=== PATIENT | female | born 1945 | race Asian ===

== ENCOUNTER 2022-02-02 20:30 | Inpatient (IN) | payer BC, MEDICARE ==
[~2022-02-02] VITALS: Ht 154.9 cm; Wt 53.7 kg
--- NOTE | 2022-02-02 20:51 | NUR ---
IV LINE RAC20G
--- NOTE | 2022-02-02 20:51 | NUR ---
BLOOD COLLECTED AND SENT TO LAB
--- NOTE | 2022-02-02 21:25 | NUR ---
COVID SWAB COLLECTED AND SENT TO LAB.
[2022-02-02 21:28] LABS: BASOPHILS % (AUTO) 0.1 % (0.0-2.0); EOSINOPHILS % (AUTO) 0.9 % (0.0-6.0); HEMATOCRIT 39 % (33-45); HEMOGLOBIN 12.4 g/dL (11.5-14.8); LYMPHOCYTES # (AUTO) 0.8 K/uL (0.8-4.8); LYMPHOCYTES % (AUTO) 6.6 % (20.0-44.0); MEAN CORPUSCULAR HGB CONC 32 g/dl (31.0-36.0); MEAN CORPUSCULAR VOLUME 90 fL (82-100); MONOCYTES # (AUTO) 0.7 K/uL (0.1-1.30); MONOCYTES % (AUTO) 5.4 % (2.0-12.0); NEUTROPHILS # (AUTO) 10.6 K/uL (1.8-8.9); PLATELET COUNT (AUTO) 178 K/uL (150-450); RED BLOOD CELL COUNT(AUTO) 4.32 MIL/uL (4.0-5.2); WHITE BLOOD COUNT (AUTO) 12.2 K/uL (4.3-11.0)
[2022-02-02 21:37] LABS: CALCIUM, SERUM 8.7 mg/dL (8.5-10.1); CREATININE 0.9 mg/dL (0.6-1.3); POTASSIUM 3.6 mmol/L (3.5-5.1)
--- NOTE | 2022-02-02 21:37 | NUR ---
XRAY AT BEDSIDE
[2022-02-03] MEDS ORDERED: MAGNESIUM HYDROXIDE 30 ML UDC PO PRN (00:30)
[2022-02-03] MEDS ORDERED: Z GUARD REMEDY 4 OZ OINT TP PRN (00:30)
[2022-02-03] MEDS ORDERED: ONDANSETRON HCL/PF 4 MG/2 ML VIAL IVP PRN (00:30)
[2022-02-03] MEDS ORDERED: ZOLPIDEM TARTRATE 5 MG TABLET PO PRN (00:30)
[2022-02-03] MEDS ORDERED: MAG HYDROX/AL HYDROX/SIMETH 30 ML UDC PO PRN (00:30)
--- NOTE | 2022-02-03 03:50 | NUR ---
PT ADMITS TO PAIN 8/10 ON PAIN SCALE. WILL PROVIDED PRN PAIN MEDS PER MD ORDER
[2022-02-03] MEDS ORDERED: MORPHINE SULFATE INJ 2 MG/ML DISP.SYRIN ONE ×4 (03:51→18:12)
[2022-02-03] MEDS: MORPHINE SULFATE INJ 2 MG/ML DISP.SYRIN IV PRN ×4 (04:01→23:45)
--- NOTE | 2022-02-03 04:21 | NUR ---
MRSA SWAB SENT TO LAB
[2022-02-03] MEDS: CEFAZOLIN 1 GM in IV D5W 50 ML IV SCH ×3 (05:00→21:00)
[2022-02-03] MEDS ORDERED: DENO60DI SQ (09:25)
[2022-02-03] MEDS ORDERED: PREG-59 PO (09:25)
[2022-02-03] MEDS ORDERED: MELO7.5T12 GT (09:25)
--- NOTE | 2022-02-03 10:52 | NUR ---
Ortho PA @ bedside. Discussed plan of care with Pt and Family (daughter @ bedside). Plan for Ortho Surgery 02/04/[address] Salinas.
--- NOTE | 2022-02-03 11:55 | NUR ---
SHELIA ([facility]) [phone], NEEDS TO SPEAK W/ PT'S RN SHIFT MGR.
--- NOTE | 2022-02-03 12:07 | NUR ---
Left Thumb Splint in place. Pt to CT
--- NOTE | 2022-02-03 12:35 | NUR ---
pt refused morphine iv dose; also refused to have ct scan done. dtr at bedside and aware of pt's refusal.
[2022-02-03] MEDS: IV NS 0.9% 1,000 ML IV PRN ×2 (13:11→20:36)
--- NOTE | 2022-02-03 19:51 | NUR ---
HALIE RN WILL CALL BACK ONCE READY FOR REPORT
--- NOTE | 2022-02-03 19:57 | NUR ---
REPORT GIVEN TO OZ HALIE
[2022-02-03 20:00] VITALS: BP 150/77
--- NOTE | 2022-02-03 20:30 | NUR ---
MS RN ADMITTING NOTES: RECEIVED PATIENT VIA GURNEY FROM ER TRANSFER TO BED, PLACED BED COMFORTABLY, BED IN LOW POSITION CALL LIGHTS WITHIN REACH, NO COMPLAIN OF PAIN AND DISCOMFORT AT THIS TIME, ON ROOM AIR SATURATING WELL, PATIENT WAS A/O X4 ABLE TO MAKE NEEDS KNOWN, ON PAIN MANAGEMENT, BED REST, WITH IV LINE AT RAC#22 WITH ONGOING NSS@100ML/HR INFUSING WELL, PATIENT SKIN ASSESSMENT DONE AND DOCUMENTED PICTURE TAKEN SOME AREA PATIENT REFUSED DUE TO IMMOBILITY RELATED TO FRACTURE,, PATIENT KEPT CLEAN AND DRY ALL NEEDS MET WILL CONTINUE TO MONIRT
[2022-02-03] MEDS: PREGABALIN 25 MG CAPSULE PO SCH (20:36)
--- NOTE | 2022-02-03 20:49 | NUR ---
PATIENT TRANSFERRED VSS, NO ACUTE DISTRESS
[2022-02-03] MEDS ORDERED: LORAZEPAM 0.5 MG TABLET PO PRN (21:00)
--- NOTE | 2022-02-04 00:53 | NUR ---
RN NOTES: ANCEF 1 GRAM, NOT GIVEN NO AVAILABLE REFER TO ECOLOGICAL ECONOMIST KAMERON FOR ALTERNATIVES PER ECOLOGICAL ECONOMIST TO HOLD THE MEDICINE NOTED AND CARRY OUT.
--- NOTE | 2022-02-04 01:16 | NUR ---
RN NOTES: ORDER A BILATERAL SOFT RESTRAINT FOR PATIENT PATIENT SEEMS CONFUSED PULLING HER DOS SANTOS CATHETER, PULLING HER IV LINE 2ND INSERTION ALREADY AND ATTEMPTING TO GET UP ON BED, BEEN GOING BACK AND FORTH AT ROOM AND EXPLAIN TO PATIENT THE RISK OF HER FALLING AGAIN BUT PATIENT ATTEMPT TO GET UP AND STILL PULL THE CATHETER,
[2022-02-04] MEDS: CEFAZOLIN 1 GM in IV D5W 50 ML IV SCH ×2 (05:00→12:50)
--- NOTE | 2022-02-04 05:33 | NUR ---
RN NOTE: ANCEF 1 GRAM ANTIBIOTIC IV NOT GIVEN FOR 5AM, PER SERVER ADMINISTRATOR KAMERON TO PUT ON HOLD.
--- NOTE | 2022-02-04 06:32 | NUR ---
RN CLOSING NOTES; PATIENT SLEEP IN BED COMFORTABLY WROUSABLE TO VERBAL STIMULI, BED IN LOW POSITION, CALL LIGHTS WITHIN REACH, NO COMPLAIN OF PAIN AND DISCOMFORT AT THIS TIME, ON ROOM AIR SATURATING WELL, PATIENT IS A/OX23 WITH EPISODE OF CONFUSION, ON NPO KEPT CLEAN AND DRY ALL NEEDS MET WILL ENDORSE TO INCOMING SHIFT.
[2022-02-04 06:58] LABS: BASOPHILS % (AUTO) 0.3 % (0.0-2.0); EOSINOPHILS % (AUTO) 2.4 % (0.0-6.0); HEMATOCRIT 36 % (33-45); HEMOGLOBIN 11.8 g/dL (11.5-14.8); LYMPHOCYTES # (AUTO) 0.6 K/uL (0.8-4.8); LYMPHOCYTES % (AUTO) 7.6 % (20.0-44.0); MEAN CORPUSCULAR HGB CONC 33 g/dl (31.0-36.0); MEAN CORPUSCULAR VOLUME 90 fL (82-100); MONOCYTES # (AUTO) 0.6 K/uL (0.1-1.30); MONOCYTES % (AUTO) 6.9 % (2.0-12.0); NEUTROPHILS # (AUTO) 6.7 K/uL (1.8-8.9); NEUTROPHILS % (AUTO) 82.8 % (43.0-81.0); PLATELET COUNT (AUTO) 138 K/uL (150-450); RED BLOOD CELL COUNT(AUTO) 4.03 MIL/uL (4.0-5.2); WHITE BLOOD COUNT (AUTO) 8.1 K/uL (4.3-11.0)
--- NOTE | 2022-02-04 07:00 | NUR ---
MS RN OPENING NOTES: RECEIVED PATIENT IN BED AWAKE, ALERT AND ORIENTED X 3 WITH EPISODES OF CONFUSION AND FORGETFULNESS. PATIENT NEEDS FREQUENT REORIENTATION. BILATERAL SOFT RESTRAINTS (OFF) PT IS BEHAVING OKAY. REDNESS ON LEFT HAND NOTED. NO SOB OR CARDIAC DISTRESS NOTED, DENIES PAIN AT THIS TME. IV ACCESS ON RAC GAUGE 20 PATENT, INTACT AND INFUSING FLUIDS NS 1L @100 ML/HR. DOS SANTOS CATHETER IN PLACE DRAINING YELLOW COLORED URINE BY GRAVITY. SAFETY MEASURES MAINTAINED: BEED LOCKED AND IN LOWEST POSITION, SIDE RAILS UP X 3, CALL LIGHT AND BED SIDE TABLE IN EASY REACH AND WILL MONITOR PT ACCORDINGLY.
[2022-02-04 07:08] LABS: CALCIUM, SERUM 8.2 mg/dL (8.5-10.1); CREATININE 0.6 mg/dL (0.6-1.3); MAGNESIUM 2.1 mg/dL (1.8-2.4); PHOSPHORUS 2.8 mg/dL (2.5-4.9); POTASSIUM 3.3 mmol/L (3.5-5.1)
[2022-02-04] MEDS: PREGABALIN 25 MG CAPSULE PO SCH ×2 (09:00→21:23)
[2022-02-04] MEDS ORDERED: POTASSIUM CL. PREMIX PERIPHER. 50 ML IV SCH (10:00)
[2022-02-04] MEDS ORDERED: POTASSIUM CHLORIDE 20 MEQ POWDER PACKET PO ONE (10:00)
--- NOTE | 2022-02-04 10:00 | NUR ---
RN NOTES: JEISON (DAUGHTER OF THE PT) INFORMED RN AND COOK VEGETABLE THAT THEY WILL DO SURGERY HERE WITH US (SO) NO BEDS AVAILABLE IN THEIR PREFERRED HOSP[facility]. MADE AWARE.
[2022-02-04] MEDS: IV NS 0.9% 1,000 ML IV PRN (10:23)
[2022-02-04] MEDS: MORPHINE SULFATE INJ 2 MG/ML DISP.SYRIN IV PRN ×2 (10:24→19:50)
[2022-02-04] MEDS ORDERED: VANCOMYCIN 1 GM VIAL ONE (11:45)
[2022-02-04] MEDS ORDERED: BUPIVACAINE 0.25% 75 MG/30 ML VIAL ONE (11:45)
[2022-02-04] MEDS ORDERED: POLYMYXIN B SULFATE 500,000 UNITS ONE (11:45)
[2022-02-04] MEDS ORDERED: BUPIVACAINE 0.5 % PF 150 MG/30 ML VIAL ONE (11:45)
[2022-02-04] MEDS ORDERED: POTASSIUM CHLORIDE 10 MEQ/50 ML PREMIXED IVPB FOR PERIPHERAL LINE IV SCH (12:00)
[2022-02-04] MEDS ORDERED: POTASSIUM CHLORIDE 10 MEQ TABLET.SA PO ONE (12:00)
--- NOTE | 2022-02-04 14:20 | NUR ---
RN NOTES: PATIENT WAS PICKED UP FOR SURGERY, PT REMAINED STABLE AND ACCOMPANIED BY RN AND TRANSPORTER AND JEISON DAUGHTER. PT LEFT THE UNIT STABLE.
[2022-02-04] MEDS ORDERED: FENTANYL PF 100MCG/2ML AMPUL ONE ×2 (15:16→15:17)
[2022-02-04] MEDS ORDERED: ROCURONIUM BROMIDE 50 MG/5 ML ONE (15:17)
[2022-02-04] MEDS ORDERED: SCOPOLAMINE PATCH 1 MG/72HR TD ONE (15:21)
[2022-02-04] MEDS ORDERED: TRANEXAMIC ACID 1,000 MG in SODIUM CHLORIDE IRRIG SOLUTION 85 ML IR ONE (16:30)
[2022-02-04] MEDS ORDERED: TRANEXAMIC ACID 1,000 MG in IV NS 0.9% 100 ML IV ONE (16:30)
--- NOTE | 2022-02-04 18:30 | NUR ---
RN NOTES: S/P LEFT HEMIARTHROPLASTY. PATIENT ALERT AND ORIENTED X 3 WITH EPISODES OF FORGETFULNESS AND CONFUSION. NO SOB OR CARDIAC DISTRESS NOTED, DENIES PAIN AT THIS TIME. ACCOMPANIED BY OZ DOLL AND TRANSPORTER VIA BED. PT NOTED WITH ADDITIONAL IV ACCESS ON LEFT HAND GAUGE 20, RIGHT HAND GAUGE 20 PATENT AND INTACT AND INFUSING NS 1L @ 100ML/HR. NOTED WITH ABDUCTION PILLOW INTACT NOTED WITH LEFT HIP DRESSING DRY AND INTACT AND WITH ICE PACK.S/P ORDERS NOTED: RESUME PRE OP ORDERS ADVANCE DIET, ANCEF 2 GRAMS IVPB Q 8HRS X 3 DOSES FIRST DOSE GIVEN 1547, LOVENOX 40MG SQ DAILY START 02/05 IF HGH >9. LYRICA 100MG PO BID. ORDERS NOTED . OZ DOLL FAXED ORDERS. PT STABLE. WILL MONITOR ACCORDINGLY.
[2022-02-04 18:49] VITALS: BP 94/56
--- NOTE | 2022-02-04 19:11 | NUR ---
MS RN CLOSING NOTES: PATIENT IN BED WAKE, FAMILY IN BED SIDE PATIENT ALERT AND ORIENTED X 3 AND ABLE TO MAKE NEEDS KNOWN. NO SOB OR CARDIAC DISTRESS NOTED, ADDUCTION PILLOW INTACT, DRESSING ON LEFT HIP DRY AND INTACT. IV ACCESS ON RIGHT AND LEFT HAND GAUGE 20 PATENT INTACT AND DRAINING NS 1L @ 100ML/HR. FC PATENT AND DRAINING CLEAR YELLOW COLORED URINE VIA GRAVITY. PT ABLE TO SIP WATER AND ICE CHIPS PROVIDED. SAFETY MEASURES MAINTAINED: BED LOCKED AND IN LOWEST POSITION, SIDE RAILS UP X 2. CALL LIGHT IN EASY REACH AND WILL ENDORSE TO TAX ACCOUNTING ASSISTANT RN FOR CONTINUITY OF CARE.
--- NOTE | 2022-02-04 19:38 | NUR ---
MS RN OPENING NOTES: RECEIVED PATIENT AWAKE IN BED, ACCOMPANIED BY FAMILY, BED IN LOW POSITION CALL LIGHTS WITHIN REACH, NO COMPLAIN OF PAIN AND DISCOMFORT AT THIS TIME, ON ROOM AIR SATURATING WELL, PATIENT IS A/O X3-4 ABLE TO MAKE NEEDS KNOWN, ON IV LINE AT RAC#20 WITH ONGOING NSS@100ML/HR INFUSING WELL, PATIENT IS S/P HEMIARTHROPLASTY, ON DOS SANTOS CATHETER, PATIENT KEPT CLEAN AND DRY ALL NEEDS WILL CONTINUE TO MONITR.
[2022-02-04 20:00] VITALS: BP 113/55
[2022-02-04 23:56] VITALS: BP 113/55
[2022-02-05] MEDS: CEFAZOLIN 2 GM in IV D5W 100 ML IV SCH ×3 (00:47→16:37)
--- NOTE | 2022-02-05 06:17 | NUR ---
MS RN OPENING NOTES: PATIENT SLEEP IN BED COMFORTABLY, BED IN LOW POSITION CALL LIGHTS WITHIN REACH NO COMPLAIN OF PAIN AND DISCOMFORT AT THIS TIME ON ROOM AIR SATURATING WELL, PATIENT IS A/OX 3-4 WITH EPISODE OF CONFUSION, S/P RIGHT HIP SURGERY NO BLEEDING WAS OBSERVED, WITH IV LINE AT RAC#20 AND LAC#20 WITH ONGOING 0.9NSS@100ML/HR INFUSING WELL, PATIENT KEPT CLEAN AND DRY ALL NEEDS MET, ENDORSE TO INCOMING SHIFT.
--- NOTE | 2022-02-05 07:05 | NUR ---
MS RN OPENING NOTES RECEIVED PATIENT SLEEPING IN BED, A/Ox3, EPISODES OF CONFUSION AND FORGETFULNESS. ON ROOM AIR, NO S/S OF RESPIRATORY DISTRESS. IV ACCESS RAC #20G RUNNING NS @ 100 ML/HR AND L AC#20 INTACT AND PATENT. PATIENT HAS FC DRAINING CLEAR YELLOW URINE. ON BED REST, SKIN ISSUES: L WRIST REDNESS. SAFETY MEASURES IN PLACE: BED LOCKED AND IN LOWEST POSITION, SIDE RAILS UPx3, BED ALARM ON, HOB ELEVATED, CALL LIGHT WITHIN REACH. WILL CONTINUE TO MONITOR.
[2022-02-05 07:47] LABS: HEMATOCRIT 30 % (33-45); HEMOGLOBIN 9.5 g/dL (11.5-14.8); LYMPHOCYTES # (AUTO) 0.5 K/uL (0.8-4.8); LYMPHOCYTES % (AUTO) 4.6 % (20.0-44.0); MEAN CORPUSCULAR HGB CONC 32 g/dl (31.0-36.0); MEAN CORPUSCULAR VOLUME 91 fL (82-100); MONOCYTES # (AUTO) 0.9 K/uL (0.1-1.30); MONOCYTES % (AUTO) 8.2 % (2.0-12.0); NEUTROPHILS # (AUTO) 9.6 K/uL (1.8-8.9); NEUTROPHILS % (AUTO) 87.2 % (43.0-81.0); PLATELET COUNT (AUTO) 156 K/uL (150-450); RED BLOOD CELL COUNT(AUTO) 3.27 MIL/uL (4.0-5.2)
[2022-02-05 08:00] VITALS: BP 114/55
[2022-02-05 08:23] LABS: ALBUMIN 2.9 g/dL (3.4-5.0); BILIRUBIN,TOTAL 0.5 mg/dL (0.2-1.0); CREATININE 0.7 mg/dL (0.6-1.3); MAGNESIUM 2.2 mg/dL (1.8-2.4); PHOSPHORUS 2.9 mg/dL (2.5-4.9); POTASSIUM 3.7 mmol/L (3.5-5.1); TOTAL PROTEIN, SERUM 5.9 g/dL (6.4-8.2)
[2022-02-05] MEDS: PREGABALIN 25 MG CAPSULE PO SCH ×2 (08:31→20:56)
[2022-02-05] MEDS: ENOXAPARIN SODIUM 40 MG/0.4 ML DISP.SYRIN SQ SCH (08:40)
[2022-02-05] MEDS: IV NS 0.9% 1,000 ML IV PRN (10:44)
[2022-02-05] MEDS: MORPHINE SULFATE INJ 2 MG/ML DISP.SYRIN IV PRN (12:06)
--- NOTE | 2022-02-05 13:00 | NUR ---
RN NOTES PRN MORPHINE ADMINISTERED FOR PAIN 10/03, WILL CONTINUE TO MONITOR.
[2022-02-05 16:00] VITALS: BP 126/60
--- NOTE | 2022-02-05 17:17 | NUR ---
RN NOTES DR. CHADWICK CALLED ASKING ABOUT PT L WRIST BRACE THAT WAS SEEN WHEN PT WAS IN ER. PATIENT DOES NOT HAVE WRIST BRACE AT BEDSIDE AND [facility] DOES NOT HAVE ANY FOR PT. ER WAS CALLED, NOT FOUND THERE, SURGERY WAS CALLED X4 TIMES, NO ANSWER RECEIVED. WILL CONTINUE TO LOOK FOR BRACE.
--- NOTE | 2022-02-05 18:57 | NUR ---
MS RN CLOSING NOTES PATIENT AWAKE IN BED, A/Ox3, EPISODES OF CONFUSION AND FORGETFULNESS. ON ROOM AIR, NO S/S OF RESPIRATORY DISTRESS. IV ACCESS R HAND #20G RUNNING NS @ 100 ML/HR AND R WRIST #20 INTACT AND PATENT. PATIENT HAS PURWICK. ON BED REST, SKIN ISSUES: L WRIST REDNESS. FAMILY AT BEDSIDE. SAFETY MEASURES MAINTAINED: BED LOCKED AND IN LOWEST POSITION, SIDE RAILS UPx3, BED ALARM ON, HOB ELEVATED, CALL LIGHT WITHIN REACH. WILL ENDORSE TO NEXT SHIFT ANY MARIA EUGENIA.
--- NOTE | 2022-02-05 19:30 | NUR ---
RN OPENING NOTE PATIENT IN BED, AWAKE. PATIENT IS A/O X 1-2 AT THIS TIME, CONFUSED. PATIENT'S DAUGHTER AND SON IN LAW AT BEDSIDE. REORIENTED PATIENT TO SITUATION, TIME, AND PLACE. PATIENT IS ON RA, TOLERATING WELL. NO SONB, BREATHING EVEN AND UNLABORED. PATIENT DOES NOT REPORT ANY PAIN AT THIS TIME. RFA 22 G PATENT AND INTACT WITH ONGOIN NS AT 100 ML/HR. R WRIST 20 G PATENT AND INTACT SAFETY MEASURES IN PLACE: BED LOCKED AND IN LOWEST POSITION, CALL LIGHT WITHIN REACH, SIDE RAILS UP. WILL MONITOR PATIENT CLOSELY.
[2022-02-05 20:00] VITALS: BP 128/90
[2022-02-06] MEDS: HYDROCODONE/APAP 5/325MG TABLET PO PRN ×2 (01:05→09:17)
--- NOTE | 2022-02-06 01:05 | NUR ---
RN NOTE NORCO 5-325 GIVEN TO PATIENT FOR 7/10 PAIN ON HER L HIP.
--- NOTE | 2022-02-06 02:38 | NUR ---
RN NOTE NOTED PATIENT'S CHUX WAS WET OF URINE PATIENT REMOVED PUREWICK. ASKED PATIENT IF WE COULD CHANGE HER CHUX AND LINEN THEY WERE DIRTY. PATIENT BECAME UPSET AND DID NOT WANT TO CHANGE IT. PATIENT ALSO INITIALLY REFUSED PUREWICK TO BE PUT IN PLACE AGAIN BUT WAS ABLE TO ENCOURAGE PATIENT AFTER EDUCATION PATIENT REGARDING THE USE OF PUREWICK. PATIENT STILL REFUSES TO CHANGE CHUX AND LINENS. UPON ASSESSMENT, PATIENT IS NOW A/O X 3.
--- NOTE | 2022-02-06 06:44 | NUR ---
RN CLOSING NOTE PATIENT IN BED, AWAKE. PATIENT IS A/O X 2 WITH PERIODS OF CONFUSION. PATIENT NEEDS FREQUENT REORIENTATION. PATIENT IS ON RA, TOLERATING WELL. NO SOB, BREATHING EVEN AND UNLABORED. PATIENT DOES NOT REPORT ANY PAIN AT THIS TIME. RFA 22 G PATENT AND INTACT WITH ONGOING NS AT 100 ML/HR. R WRIST 20 G PATENT AND INTACT. PATIENT STILL REFUSES TO CHANGE LINEN. GOWN CHANGED, PUREWICK WORKING WELL WITH WALL SUCTION DRAINING YELLOW URINE. SAFETY MEASURES IN PLACE: BED LOCKED AND IN LOWEST POSITION, CALL LIGHT WITHIN REACH, SIDE RAILS UP. ALL NEEDS MET AND ATTENDED. ALL ORDERS CARRIED OUT. WILL ENDORSE TO DAY SHIFT NURSE FOR MARIA EUGENIA.
[2022-02-06 06:56] LABS: BASOPHILS % (AUTO) 0.3 % (0.0-2.0); HEMATOCRIT 26 % (33-45); HEMOGLOBIN 8.5 g/dL (11.5-14.8); LYMPHOCYTES # (AUTO) 1.1 K/uL (0.8-4.8); LYMPHOCYTES % (AUTO) 14.7 % (20.0-44.0); MEAN CORPUSCULAR HGB CONC 33 g/dl (31.0-36.0); MEAN CORPUSCULAR VOLUME 91 fL (82-100); MONOCYTES # (AUTO) 1.1 K/uL (0.1-1.30); NEUTROPHILS # (AUTO) 5.5 K/uL (1.8-8.9); PLATELET COUNT (AUTO) 156 K/uL (150-450); RED BLOOD CELL COUNT(AUTO) 2.84 MIL/uL (4.0-5.2); WHITE BLOOD COUNT (AUTO) 7.8 K/uL (4.3-11.0)
--- NOTE | 2022-02-06 07:05 | NUR ---
MS RN OPENING NOTES RECEIVED PATIENT SLEEPING IN BED, A/Ox2-3, EPISODES OF CONFUSION AND FORGETFULNESS. ON ROOM AIR, NO S/S OF RESPIRATORY DISTRESS. IV ACCESS R FA #20G RUNNING NS @ 100 ML/HR AND R WRIST #20 S/L. PATIENT HAS PUREWICK. ON BED REST, SKIN ISSUES: L WRIST REDNESS. SAFETY MEASURES IN PLACE: BED LOCKED AND IN LOWEST POSITION, SIDE RAILS UPx3, BED ALARM ON, HOB ELEVATED, CALL LIGHT WITHIN REACH. WILL CONTINUE TO MONITOR.
[2022-02-06 07:25] LABS: CALCIUM, SERUM 7.6 mg/dL (8.5-10.1); CARBON DIOXIDE 25 mmol/L (21-32); CHLORIDE 108 mmol/L (98-107); CREATININE 0.6 mg/dL (0.6-1.3); GLUCOSE 109 mg/dL (74-106); MAGNESIUM 2.3 mg/dL (1.8-2.4); PHOSPHORUS 1.6 mg/dL (2.5-4.9); POTASSIUM 3.4 mmol/L (3.5-5.1); SODIUM SERUM 142 mmol/L (136-145); UREA NITROGEN, BLOOD 12 mg/dL (7-18)
[2022-02-06 08:00] VITALS: BP 121/62
[2022-02-06] MEDS: PREGABALIN 25 MG CAPSULE PO SCH ×2 (08:12→20:56)
[2022-02-06] MEDS: ENOXAPARIN SODIUM 40 MG/0.4 ML DISP.SYRIN SQ SCH (08:12)
[2022-02-06] MEDS: IV NS 0.9% 1,000 ML IV PRN (09:07)
--- NOTE | 2022-02-06 10:00 | NUR ---
RN NOTES PATIENT HAS PT, SHOWS SOME PAIN WHEN CHANGING POSITION, PRN NARCO 5-325 MG 1 TAB ADMINISTERED. WILL CONTINUE TO MONITOR.
[2022-02-06] MEDS ORDERED: POTASSIUM CHLORIDE 20 MEQ TAB.PRT.SR PO SCH (11:00)
[2022-02-06] MEDS ORDERED: Hydrocodone/Apap 5/325MG PO (12:13)
[2022-02-06] MEDS ORDERED: ENOX40DI SQ (12:13)
[2022-02-06] MEDS ORDERED: ACET325T53 PO (12:13)
[2022-02-06] MEDS ORDERED: TRAMADOL HCL 50 MG TABLET PO PRN (13:00)
[2022-02-06] MEDS ORDERED: K PHOS NEUTRAL 250 MG TABLET PO ONE (15:30)
--- NOTE | 2022-02-06 18:47 | NUR ---
MS RN CLOSING NOTES PATIENT AWAKE IN BED, A/Ox2-3, EPISODES OF CONFUSION AND FORGETFULNESS. STABLE ON ROOM AIR, NO S/S OF RESPIRATORY DISTRESS. IV ACCESS R FA #20G RUNNING NS @ 100 ML/HR AND R WRIST #20 S/L. PATIENT HAS PUREWICK. ON BED REST, SKIN ISSUES: L WRIST REDNESS. SAFETY MEASURES MAINTAINED: BED LOCKED AND IN LOWEST POSITION, SIDE RAILS UPx3, BED ALARM ON, HOB ELEVATED, CALL LIGHT WITHIN REACH. WILL ENDORSE TO NEXT SHIFT ANY MARIA EUGENIA.
--- NOTE | 2022-02-06 19:15 | NUR ---
RN OPENING NOTE PATIENT IN BED, AWAKE. PATIENT IS A/O X 1-2 AT THIS TIME, CONFUSED. PATIENT'S DAUGHTER AT BEDSIDE. REORIENTED PATIENT TO SITUATION, TIME, AND PLACE. PATIENT IS ON RA, TOLERATING WELL. NO SOB, BREATHING EVEN AND UNLABORED. PATIENT DOES NOT REPORT ANY PAIN AT THIS TIME. RFA 22 G IV ACCESS INFILTRATED, PATIENT'S ARM EDEMATOUS. WILL INSERT NEW IV ACCESS. SAFETY MEASURES IN PLACE: BED LOCKED AND IN LOWEST POSITION, CALL LIGHT WITHIN REACH, SIDE RAILS UP. WILL MONITOR PATIENT CLOSELY.
--- NOTE | 2022-02-06 19:45 | NUR ---
INSERTED LFA 22 G PATENT AND INTACT, WRAPPED IN KERLIX TO PREVENT PATIENT FROM PULLING IT OUT. REMOVED RFA AND R HAND IV ACCESS. ELEVATED EXTREMITY WITH PILLOWS.
--- NOTE | 2022-02-07 00:30 | NUR ---
PATIENT PULLED OUT IV ACCESS ON THE LFA. REMOVED PUREWICK AND ABDUCTION PILLOWS. PATIENT TRIES TO GET OUT OF BED WELL. PATIENT REALLY CONFUSED. WILL INSERT NEW IV ACCESS, REORIENTED PATIENT TO SITUATION. WILL CONTINUE TO MONITOR PATIENT'S BEHAVIOR
--- NOTE | 2022-02-07 03:40 | NUR ---
OBTAINED RESTRAIN ORDERS, PATIENT HAS ATTEMPTED TO LEAVE THE BED MULTIPLE TIMES, REMOVES ABDUCTION PILLOW. DISROBING AND REMOVING THE PUREWICK AND REMOVING LINES. PATIENT REMAINS TO BE A/O X 1 WITH CONFUSION. SAYING THINGS THAT DOES NOT RELATE LIKE LOOKING FOR A DOG IN THE ROOM, AND GOING UPSTAIRS, ETC. PATIENT IS A HIGH RISK FOR FALLS. INSERTED NEW IV ACCESS ON THE L AC 20G, PATENT AND INTACT.
[2022-02-07] MEDS: IV NS 0.9% 1,000 ML IV PRN (05:06)
--- NOTE | 2022-02-07 06:52 | NUR ---
RN CLOSING NOTE PATIENT IN BED, EYES CLOSED. PATIENT IS A/O X 1-2 AT THIS TIME, CONFUSED. PATIENT REMAINS ON LUCERO SOFT WRIST RESTRAINTS, CONTINUES TO TRY TO TRY TO REMOVE EQUIPMENT AND GET OUT OF BED. REORIENTED PATIENT TO SITUATION, TIME, AND PLACE. PATIENT IS ON RA, TOLERATING WELL. NO SOB, BREATHING EVEN AND UNLABORED. PATIENT DOES NOT REPORT ANY PAIN AT THIS TIME. LAC 20 G PATENT AND INTACT, WITH NS ONGOING AT 100 ML/HR. SAFETY MEASURES IN PLACE: BED LOCKED AND IN LOWEST POSITION, CALL LIGHT WITHIN REACH, SIDE RAILS UP. ALL NEEDS MET AND ATTENDED. ALL ORDERS CARRIED OUT. WILL ENDORSE TO DAY SHIFT NURSE FOR MARIA EUGENIA.
--- NOTE | 2022-02-07 07:33 | NUR ---
MS RN OPENING NOTE RECEIVED PATIENT AWAKE IN BED, A/Ox2-3, EPISODES OF CONFUSION AND FORGETFULNESS. ON ROOM AIR, NO S/S OF RESPIRATORY DISTRESS. IV ACCESS R FA #20G RUNNING NS @ 100 ML/HR AND R WRIST #20 S/L. PATIENT HAS PUREWICK. ON BED REST, SKIN ISSUES: L WRIST REDNESS. SAFETY MEASURES IN PLACE: BED LOCKED AND IN LOWEST POSITION, SIDE RAILS UPx3, BED ALARM ON, HOB ELEVATED, CALL LIGHT WITHIN REACH. BILATERAL WRIST RESTRAINTS ON TO PREVENT PT FROM PULLING OUT PERIPHERAL IV AND/OR REMOVING HIP ABDUCTOR PILLOW IN PLACE BETWEEN HER LEGS HAS GOOD PERFUSION WITH COLOR, SENSATION, MOTION WNL IN ALL 4 EXTREMITIES. WILL CONTINUE TO MONITOR.
[2022-02-07] MEDS: ENOXAPARIN SODIUM 40 MG/0.4 ML DISP.SYRIN SQ SCH (08:03)
[2022-02-07] MEDS: PREGABALIN 25 MG CAPSULE PO SCH ×2 (08:04→20:11)
[2022-02-07 08:54] VITALS: BP 133/66
[2022-02-07] MEDS: ACETAMINOPHEN 325 MG TABLET PO PRN ×2 (12:52→20:11)
[2022-02-07 16:00] VITALS: BP 118/57
--- NOTE | 2022-02-07 18:52 | NUR ---
RN CLOSING NOTE PT IN BED A/Ox2-3, PERIODS OF CONFUSION AND FORGETFULNESS. ON ROOM AIR, NO S/S OF RESPIRATORY DISTRESS. IV ACCESS R FA #20G RUNNING NS @ 100 ML/HR AND R WRIST #20 S/L. ON BED REST, SKIN ISSUES: L WRIST REDNESS. SAFETY MEASURES IN PLACE: BED LOCKED AND IN LOWEST POSITION, SIDE RAILS UPx3, BED ALARM ON, HOB ELEVATED, CALL LIGHT WITHIN REACH. PRN, USED , BILATERAL WRIST RESTRAINTS ON TO PREVENT PT FROM PULLING OUT PERIPHERAL IV AND/OR REMOVING HIP ABDUCTOR PILLOW IN PLACE BETWEEN HER LEGS HAS GOOD PERFUSION WITH COLOR, SENSATION, MOTION WNL IN ALL 4 EXTREMITIES. WILL CONTINUE TO MONITOR.
[2022-02-07 19:08] LABS: BILIRUBIN,URINE NEGATIVE (NEGATIVE); COLOR,URINE YELLOW (YELLOW); LEUKOCYTE ESTERASE ,URINE 1+ (NEGATIVE); NITRITE, URINE NEGATIVE (NEGATIVE); PH,URINE 6.5 (5.0-8.0); PROTEIN,URINE NEGATIVE (NEGATIVE); UGLUCOSE NEGATIVE (NEGATIVE)
--- NOTE | 2022-02-07 19:30 | NUR ---
MS RN OPENING NOTE RECEIVED PATIENT IN BED; AWAKE, ALERT AND ORIENTED X 2 WITH PERIODS OF CONFUSION AND FORGETFULNESS. ON ROOM AIR; TOLERATING WELL. BREATHING EVEN AND NONLABORED. DENIES ANY PAIN OR DISCOMFORT AT THIS TIME. WITH IV ACCESS @ LEFT FOREARM 22G; PATENT AND INTACT INFUSING WITH NS 1L REGULATED @ 100 ML/HR; FLUSHES WELL. WITH FAMILY MEMBERS @ BEDSIDE. ABLE TO MAKE NEEDS KNOWN. SAFETY MEASURES IMPLEMENTED: CALL LIGHT AND TABLE WITHIN REACH, SIDE RAILS UP X 2, BED IN LOWEST LOCKED POSITION. WILL CONTINUE TO MONITOR THROUGHOUT SHIFT.
[2022-02-07 20:00] VITALS: BP 135/61
[2022-02-07 20:30] VITALS: BP 135/61
[2022-02-07 20:56] LABS: BACTERIA,URINE 1+ /HPF (None Seen); SQUAMOUS EPITHELIAL CELL,UR 0-2 /HPF (None Seen)
--- NOTE | 2022-02-08 06:45 | NUR ---
MS RN CLOSING NOTE PATIENT IN BED; AWAKE, A/O X 2 WITH PERIODS OF CONFUSION AND FORGETFULNESS. STABLE ON ROOM AIR. BREATHING EQUALLY AND UNLABORED. NO C/O PAIN OR DISCOMFORT AT THIS TIME. IV ACCESS @ L FA 22G; PATENT AND INTACT INFUSING WITH NS 1L REGULATED @ 100 ML/HR. ALL NEEDS ATTENDED. SAFETY MEASURES MAINTAINED: CALL LIGHT AND TABLE WITHIN REACH, SIDE RAILS UP X 2, BED IN LOWEST LOCKED POSITION. ENDORSED TO MORNING SHIFT FOR MARIA EUGENIA.
[2022-02-08 07:00] VITALS: BP 138/64
--- NOTE | 2022-02-08 08:08 | NUR ---
RN OPENING NOTE- PT ASLEEP EASILY AWAKENED, A/Ox2-3, EPISODES OF CONFUSION, ON ROOM AIR, NO S/S OF RESPIRATORY DISTRESS. IV ACCESS R FA #20G RUNNING NS @ 100 ML/HR AND R WRIST #20 S/L. ON BED REST, SKIN ISSUES: L WRIST REDNESS. SAFETY MEASURES IN PLACE: BED LOCKED AND IN LOWEST POSITION, SIDE RAILS UPx3, BED ALARM ON, HOB ELEVATED, CALL LIGHT WITHIN REACH. BILATERAL WRIST RESTRAINTS ON TO PREVENT PT FROM PULLING OUT PERIPHERAL IV AND/OR REMOVING HIP ABDUCTOR PILLOW IN PLACE BETWEEN HER LEGS NOT IN USE AT PRESENT. PT DIRECTABLE. PT TODAY. WILL CONTINUE TO MONITOR/ ASSIST
[2022-02-08] MEDS: ENOXAPARIN SODIUM 40 MG/0.4 ML DISP.SYRIN SQ SCH (08:28)
[2022-02-08] MEDS: PREGABALIN 25 MG CAPSULE PO SCH (08:29)
[2022-02-08] MEDS ORDERED: CEFTRIAXONE 1 G in IV D5W 50 ML IV SCH (10:00)
[2022-02-08] MEDS ORDERED: ACET325C7 PO (10:20)
[2022-02-08] MEDS ORDERED: ENOX40DI SUBCUT (10:20)
[2022-02-08] MEDS ORDERED: CEPH500C2 PO (10:20)
[2022-02-08 12:00] VITALS: BP 111/62
--- NOTE | 2022-02-08 12:35 | NUR ---
RN NOTE- PT DC AT THIS TIME WITH FAMILY TO HOME W PRIVATE CAREGIVER. AOX2, VS STABLE, INTERACTIVE AND MEDICALLY CLEARED. IV REMOVED, ID WRISTBAND REMOVED, AFTERCARE AND ORDERS REVIEWED W DAUGHTER AND UNDERSTOOD. MEDS CALLED INTO PHARMACY, ESCORTED OFF UNIT BY STAFF.
[2022-02-09] MEDS ORDERED: ENSURE ENLIVE 237 ML LIQUID (VANILLA) PO SCH (09:00)
== END 2022-02-08 14:58 | disposition home health service (06) | DRG 522 ==
LOC: ER 20:33 → EDSEX 20:33 → TRANSITION 02-03 03:44 → MED 02-03 19:44
PROVIDERS: ATTEND Nurse Practitioner Acute Care
PROC: 0SRS0JZ Replacement of Left Hip Joint, Femoral Surface with Synthetic Substitute, Open Approach (ICD-10-PCS; principal; 2022-02-05)
DX: S72.032A Displaced midcervical fracture of left femur, initial encounter for closed fracture (principal); N39.0 Urinary tract infection, site not specified; Z20.822 Contact with and (suspected) exposure to COVID-19; W01.0XXA Fall on same level from slipping, tripping and stumbling without subsequent striking against object, initial encounter; Y92.009 Unspecified place in unspecified non-institutional (private) residence as the place of occurrence of the external cause; Z88.1 Allergy status to other antibiotic agents; Z88.2 Allergy status to sulfonamides; M81.0 Age-related osteoporosis without current pathological fracture; I10 Essential (primary) hypertension; Z96.652 Presence of left artificial knee joint; H91.90 Unspecified hearing loss, unspecified ear; D72.829 Elevated white blood cell count, unspecified; Z79.899 Other long term (current) drug therapy; S62.025A Nondisplaced fracture of middle third of navicular [scaphoid] bone of left wrist, initial encounter for closed fracture; B96.89 Other specified bacterial agents as the cause of diseases classified elsewhere
CPT/HCPCS: 36415; 71045-TC; 73020; 73100-TC; 73130-TC; 73200-TC; 73552; 73560-TC; 80048-TC; 80053-TC; 81001; 83735-TC; 84100-TC; 85025-TC; 87081-TC; 87086-TC; 88305-TC; 88311-TC; 94799-TC; 97110-TC; 97530-TC; A4217; A6209; C1776; C9803; G0378; J0330; J0690; J0696; J1100; J1650; J2270; J2405; J2704; J3010; J3370; J3480; J3490; J7030; J7042; J7060